=== PATIENT | male | born 1955 | race Caucasian/White ===

== ENCOUNTER 2018-11-08 07:22 | Inpatient (IN) | payer OTHER | END 2018-11-10 15:30 | disposition home health service (06) | DRG 470 | LOC: M.TBA 07:22 → M.ORTHSURG 12:01 | PROVIDERS: ADMIT Internal Medicine | PROC: 0SRB0JZ Replacement of Left Hip Joint with Synthetic Substitute, Open Approach (ICD-10-PCS; principal; 2018-11-08) | DX: M16.12 Unilateral primary osteoarthritis, left hip (principal); K59.00 Constipation, unspecified; Z82.49 Family history of ischemic heart disease and other diseases of the circulatory system; Z80.1 Family history of malignant neoplasm of trachea, bronchus and lung; Z84.1 Family history of disorders of kidney and ureter; Z88.6 Allergy status to analgesic agent; Z87.891 Personal history of nicotine dependence; Z90.81 Acquired absence of spleen; Z28.21 Immunization not carried out because of patient refusal ==

== ENCOUNTER 2021-04-30 11:41 | Inpatient (IN) | payer OTHER ==
[2021-04-30] VITALS (15 sets, daily range): BP systolic 85–180; BP diastolic 55–120
[~2021-04-30] VITALS: Ht 188 cm; Wt 107.2 kg
[~2021-04-30 11:41] MED LIST: COLACE 100 MG100 MG PO; HYDROCODONE-AP1 EAC6 PO; OXYCODONE HCL 55 MG PO; PERCOCET PO; SENOKOT-S1 TA1 PO; XARELTO10 MG PO
--- NOTE | 2021-04-30 11:54 | NUR ---
SEE STEMI PAPERWORK.
[2021-04-30 12:01] LABS: ABSOLUTE BASOPHILS 0.1 thou/uL (0.0-0.2); ABSOLUTE EOSINOPHILS 0.3 thou/uL (0.0-0.7); ABSOLUTE LYMPHOCYTES 3.7 thou/uL (0.8-5.3); ABSOLUTE MONOCYTES 1.5 thou/uL (0.0-1.2); ABSOLUTE NEUTROPHILS 9.6 thou/uL (1.6-8.1); BASOPHILS 0.7 %; EOSINOPHILS 2.2 %; HEMATOCRIT 44.8 % (42.0-52.0); HEMOGLOBIN 15.3 gm/dL (14.0-18.0); MCH 35.6 pg (26.0-34.0); MCV 104.5 fL (80.0-100.0); MPV 9.4 fl. (7.2-11.1); NUCLEATED RBCS 0 /100WBC; PLATELET COUNT* 243 thou/uL (150-400); POLYS 63.1 %; RBC 4.29 mil/uL (4.50-6.00); RDW-CV 14.4 % (10.5-14.5); WBC 15.2 thou/uL (4.0-11.0)
[2021-04-30 12:15] LABS: APTT 26.1 Seconds (25.0-31.3); PROTIME 10.5 Seconds (9.20-11.50)
[2021-04-30 12:22] LABS: CALCIUM 9.7 mg/dL (8.5-10.1); CREATININE 1.3 mg/dL (0.6-1.3); POTASSIUM 4.6 mmol/L (3.5-5.1)
[2021-04-30 12:33] LABS: ALBUMIN 4.2 g/dL (3.4-5.0); MAGNESIUM 2.2 mg/dL (1.8-2.4); TOTAL BILIRUBIN 0.7 mg/dL (<0.1-1.0); TOTAL PROTEIN 8.2 g/dL (6.4-8.2)
--- NOTE | 2021-04-30 14:52 | EKG ---
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 : 1955 Requested By: Dennis Bui Order Number: [id number] MD: Gumaro Yeager Measurements Intervals [place] Rate: 98 P: 72 [place]: 144 QRS: 79 QRSD: 83 T: 78 QT: 330 QTc: 422 Interpretive Statements Sinus rhythm Inferoposterior infarct, acute Probable RV involvement, suggest recording right precordial leads Compared to ECG 10/27/2018 09:06:31 Myocardial infarct finding now present Electronically Signed On 04-30-2021 14:52:35 CDT by Gumaro Yeager [email or web address] <ELECTRONICALLY SIGNED> By: Gumaro Yeager MD, FACC 04/30/21 1452 1146 1146 Gumaro Yeager MD, FAC /EPI
--- NOTE | 2021-04-30 14:55 | EKG ---
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: : 1955 Requested By: Dennis Bui Order Number: [id number] MD: Gumaro Yeager Measurements Intervals [place] Rate: 59 P: 64 [place]: 144 QRS: 41 QRSD: 89 T: 54 QT: 383 QTc: 380 Interpretive Statements Sinus rhythm Inferoposterior infarct, acute (LCx) Compared to ECG 04/30/2021 11:46:15 inferoposterior ischemic changes have diminished Electronically Signed On 04-30-2021 14:55:12 CDT by Gumaro Yeager [email or web address] <ELECTRONICALLY SIGNED> By: Gumaro Yeager MD, FAC 04/30/21 1455 1438 1438 Gumaro Yeager MD, [facility] /EPI
--- NOTE | 2021-04-30 15:33 | CARD ---
[address] [address] CARDIAC CATH REPORT Name: NAVEEN RODRIGUEZ Room: [place] [address] ADM IN M.Josh.#: [id number] Admission: 04/30/21 Attend Phys: Gumaro Yeager MD, Discharge: Date of : 59 Report #: [id number] THIS REPORT FOR: cc: Mekhi Pérez Vincent R. DO Holkins,Gumaro Kurtz MD [facility] ~ APPROVED REPORT Study performed: 04/30/2021 12:07:21 Patient Details Patient Status: ED Room #: The patient is a 66 year-old male Event Personnel Dr. Yeager, Antony Becerra EMBEDDED SOFTWARE MANAGER, Sera Clark RN, Susana Nguyen RTR Procedures Performed Left heart cath with LV measurement. Drug eluting stent placement to the proximal and distal circumflex. Indication STEMI Risk Factors Hypercholesterolemia Admission/Lab Medications/Medications given during procedure Angiomax bolus and infusion Procedure Narrative The patient was brought emergently to the Cardiac Catheterization Laboratory and was prepped and draped in a sterile manner. The right femoral was infiltrated with 2% Lidocaine subcutaneous anesthesia. IV conscious sedation was used throughout procedure with appropriate monitoring and was performed in the presence of a registered nurse who was an independent trained observer other than the physician performing the procedure. A 6fr [place] sheath was inserted into the right femoral artery. Coronary angiography was performed using coronary diagnostic catheters. The right coronary system was accessed and visualized with a Diagnostic JR4 catheter. The left coronary system was accessed and visualized with a Diagnostic JL4 catheter. Left ventricular/Aortic Valve [place] [address] CARDIAC CATH REPORT Name: MICHAELNAVEEN L Room: [address] IN [facility]#: [id number] Admission: 04/30/21 Attend Phys: Gumaro Yeager MD, Discharge: Date of : 59 Report #: [id number] pullback. Closure device was deployed with a 6Fr Fr Angioseal. The patient tolerated the procedure well and there were no complications associated with the procedure. There was no hematoma. Intraoperative Conscious Sedation Sedation start time: 1226 Case end Time: 1307 Fluoro Time: 14.6 minutes Dose: DAP [id number] cGycm2 1865 mGy Contrast Type and Amount: omnipaque 225ml Coronary Angiography The patient's coronary anatomy is right dominant. Diagnostic Cath Left Main 0% LAD 30% mid vessel narrowing with 50% proximal first diagonal narrowing Circumflex Prominent though nondominant vessel with 75% proximal narrowing and 100% occlusion of the distal circumflex after the takeoff of the second marginal branch with local thrombus at that site Right Coronary Dominant vessel with 0% narrowing Left Ventriculography Left Ventriculography was not performed. Hemodynamics The aortic pressure is 133/73 mmHg with a mean of 99 mmHg. The left ventricular pressure is 120/4 mmHg with a mean of 20 mmHg. The left ventricular end diastolic pressure is 21 mmHg. There was no gradient across the aortic valve upon pullback. PCI Technique Lesion Anticoagulation was achieved with Angiomax. Percutaneous coronary intervention was performed on the distal circumflex artery segment. The lesion stenosis prior to intervention was 100% with TONY 0 flow. A EBU 3.5 6Fr Guide Catheter was used to engage the Left ostium. A ProwaterFlex Interventional Guidewire was used to cross the lesion. BALLOON DILATION A Balloon catheter 2.0 x 12 Euphora was inserted and inflated up to 8atm for 6seconds. Additional Inflation: 10atm for 9[place]. [place] [address] CARDIAC CATH REPORT Name: MICHAELJOSE WANTIMA De León Room: [address]#: [id number] Admission: 04/30/21 Attend Phys: Gumaro Yeager MD, Discharge: Date of : 59 Report #: [id number] STENT DEPLOYMENT A 2.0 x 18 Taz stent was inserted and inflated up to 8atm for 6seconds. Additional Inflation: 12atm for 9seconds. POST STENT DEPLOYMENT BALLOON DILATION A Balloon catheter 2.0 x 8 Mini Trek was inserted and inflated up to 12atm for 22seconds. Additional Inflation: 12atm for 5seconds. Final angiography reveals 0 % stenosis with TONY 3 flow. PCI Technique Lesion 2 Percutaneous Coronary Intervention was performed on the proximal circumflex artery segment. Percutaneous coronary intervention was performed on the proximal circumflex artery segment. The lesion stenosis prior to intervention was 75% with TONY 3 flow. A EBU 3.5 6 Fr Guide Catheter was used to engage the Left ostium. A iPerceptions Interventional Guidewire was used to cross the lesion. Stent Deployment A 2.75 x 8 [place] stent was inserted and inflated up to 16atm for 9seconds. Additional Inflation: 18atm for 9seconds. Additional Inflation: 20atm for 14seconds. Final angiography reveals 0 % stenosis with TNOY 3 flow. Conclusion 1. Acute inferoposterior STEMI 2. Significant coronary artery disease characterized by the following: A 30% mid LAD narrowing with 50% first diagonal narrowing B prominent though nondominant circumflex with 75% proximal stenosis and 100% distal occlusion with local thrombus at the site 3. Moderate elevation of left ventricular end-diastolic pressure at rest 4. Successful PCI with deployment of a drug-eluting stent at the site of 100% distal circumflex occlusion with 0% residual narrowing TONY-3 flow to the distal vessel with no residual thrombus 5. Successful PCI with deployment of drug-el[place] [address] CARDIAC CATH REPORT Name: NAVEEN RODRIGUEZ Room: [address] IN [facility]#: [id number] Admission: 04/30/21 Attend Phys: Gumaro Yeager MD, Discharge: Date of : 59 Report #: [id number] of 75% proximal circumflex stenosis with 0% residual narrowing and TONY-3 flow to the distal vessel Recommendations Cardiac Risk Reduction Program Aggressive Medical Therapy Medications Administered Aspirin (any) Prasugrel Diagnostic Cath Approved by: Gumaro Yeager MD Date/Time: 04/30/2021 15:28:57 <ELECTRONICALLY SIGNED> By: Gumaro Yeager MD, [facility] 04/30/21 1532 153 [id number] Yeager MD, [facility] /INF
--- NOTE | 2021-04-30 20:28 | NUR ---
PATIENT ARRIVED TO THE ICU BED 6 AT 1555 WITH TREAD CUTTER NURSE AT BEDSIDE. RIGHT GROIN SITE CHECKED WITH NO HEMATOMA OR OOZING NOTED. PATIENT DENIES CHEST PAIN AT TIME OF ASSESSMENT. PATIENT WAS PLACED ON ICU MONITORS AND MADE COMFORTABLE IN THE BED. PATIENT INSTRUCTED TO BE ON BEDREST UNTIL 1999 TONIGHT AND RIGHT LOWER EXTRIMITY TO STAY STRAIGHT UNTIL THEN. ASSESSMENT CHARTED. NO FURTHER CONCERNS AT THIS TIME. WILL CONTINUE TO MONITOR AND CARE PER PLAN OF CARE.
[2021-05-01] VITALS (42 sets, daily range): BP systolic 76–120; BP diastolic 39–72
[2021-05-01 03:23] LABS: HEMATOCRIT 38.1 % (42.0-52.0); MCH 35.3 pg (26.0-34.0); MCHC 33.5 g/dL (28.0-37.0); MCV 105.5 fL (80.0-100.0); MPV 9.4 fl. (7.2-11.1); RBC 3.61 mil/uL (4.50-6.00); RDW-CV 14.5 % (10.5-14.5)
[2021-05-01 03:28] LABS: HEMOGLOBIN 12.7 gm/dL (14.0-18.0)
[2021-05-01 04:08] LABS: ALBUMIN 3.2 g/dL (3.4-5.0); ALKALINE PHOSPHATASE 81 U/L (46-116); ANION GAP 10 mmol/L (7-16); BUN 20 mg/dL (7-18); CALCIUM 8.3 mg/dL (8.5-10.1); CHLORIDE 105 mmol/L (98-107); CHOLESTEROL 194 mg/dL (<200); CK-MB MASS 43.8 ng/mL (<0.5-3.6); CO2 22 mmol/L (21-32); CREATININE 1.2 mg/dL (0.6-1.3); GLUCOSE 121 mg/dL (70-99); HDL CHOLESTEROL 34 mg/dL (>40); LDL CHOLESTEROL 131 mg/dL (<100); POTASSIUM 4.3 mmol/L (3.5-5.1); SGOT 89 U/L (15-37); SGPT 36 U/L (30-65); SODIUM 137 mmol/L (136-145); TC:HDL 5.7 Ratio (Not establshd); TOTAL PROTEIN 6.5 g/dL (6.4-8.2); TRIGLYCERIDE 149 mg/dL (<150); VLDL 30 mg/dL (<40)
[2021-05-01 04:10] LABS: SERUM ASSESSMENT CLEAR
--- NOTE | 2021-05-01 07:46 | NUR ---
NO ACUTE CHANGES NOTED THIS SHIFT. PT HAD ASYMPTOMATIC HYPOTENSION LAST NOC. MD CARDOSO ORDERED NS BOLUS. SEE EMAR. ASSESSMENTS COMPLETE CHARTED. PT DENIED CHEST PAIN. FALL PRECAUTIONS IN PLACE FOR SAFETY.
--- NOTE | 2021-05-01 11:21 | EKG ---
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 : 1955 Requested By: Gumaro Yeager Order Number: [id number] Reading MD: Hugo Kendrick Measurements Intervals [place] Rate: 61 P: 60 [place]: 140 QRS: 46 QRSD: 91 T: 57 QT: 403 QTc: 406 Interpretive Statements Sinus rhythm Abnormal R-wave progression, early transition Probable inferior infarct, acute Compared to ECG 04/30/2021 14:38:35 No significant changes Electronically Signed On 05-01-2021 11:20:55 CDT by Hugo Kendrick [email or web address] <ELECTRONICALLY SIGNED> By: Hugo Kendrick MD, FACC 05/01/21 1120 0307 030 Hugo Kendrick MD, FAC /EPI
--- NOTE | 2021-05-01 11:45 | 2DMMODE ---
[place] [address] 2 D/M-MODE ECHOCARDIOGRAM Name: MICHAELNAVEEN WAN Sarthak Room: [address] IN .R.#: [id number] Admission: 04/30/21 Attend Phys: Lydia Lakhani Discharge: Date of : 59 Date of Service: 05/01/21 1145 Report #: [id number] THIS REPORT FOR: cc: Mekhi Pérez,Mekhi Wagner,Gumaro Kurtz MD [facility] ~ APPROVED REPORT Study performed: 05/01/2021 10:11:18 EXAM: Comprehensive 2D, Doppler, and color-flow Echocardiogram Patient Location: In-Patient Room #: 006 Status: routine BSA: 2.36 HR: 71 bpm BP: 113/66 mmHg Rhythm: NSR Other Information Study Quality: Good Indications Acute ND 2D Dimensions IVSd: 9.84 (7-11mm) LVOT Diam: 20.47 (18-24mm) LVDd: 46.05 mm PWd: 10.10 (7-11mm) Ascending Ao: 31.06 (22-36mm) LVDs: 30.09 (25-40mm) Aortic Root: 33.30 mm Volumes Left Atrial Volume (Systole) LA ESV Index: 26.40 mL/m2 Aortic Valve AoV Peak Serafin.: 1.24 m/s AO Peak Gr.: 6.16 mmHg LVOT Max P.46 mmHg AO Mean Gr.: 3.21 mmHg LVOT Mean P.07 mmHg LVOT Max V: 1.06 m/s AO V2 VTI: 25.26 cm LVOT Mean V: 0.66 m/s MARCE (VTI): 2.78 cm2 LVOT V1 VTI: 21.33 [place] [address] 2 D/M-MODE ECHOCARDIOGRAM Name: NAVEEN RODRIGUEZ Room: [address] IN ..#: [id number] Admission: 04/30/21 Attend Phys: Lydia Lakhani Discharge: Date of : 59 Date of Service: 05/01/21 1145 Report #: [id number] Mitral Valve E/A Ratio: 1.08 MV Decel. Time: 236.51 ms MV E Max Serafin.: 0.91 m/s MV PHT: 68.59 ms MVA (PHT): 3.21 cm2 TDI E/Lateral E': 7.58 E/Medial E': 7.00 Medial E' Serafin.: 0.13 m/s Lateral E' Serafin.: 0.12 m/s Pulmonary Valve PV Peak Serafin.: 1.13 m/s PV Peak Gr.: 5.14 mmHg Left Ventricle The left ventricle is normal size. There is subtle inferobasilar hypokinesis. There is normal left ventricular wall thickness. Left ventricular systolic function is normal. The left ventricular ejection fraction is within the normal range. LVEF is 55-60%. The left ventricular diastolic function is normal. Right Ventricle The right ventricle is normal size. The right ventricular systolic function is normal. Atria The left atrium size is normal. The right atrium size is normal. Aortic Valve The aortic valve is normal in structure. No aortic regurgitation is present. There is no aortic valvular stenosis. Mitral Valve The mitral valve is normal in structure. Trace mitral regurgitation. No evidence of mitral valve stenosis. Tricuspid Valve The tricuspid valve is normal in structure. Trace tricuspid regurgitation. Unable to assess PA pressure. Pulmonic Valve The pulmonary valve is normal in structure. There is no pulmonic [place] [address] 2 D/M-MODE ECHOCARDIOGRAM Name: NAVEEN RODRIGUEZ Sarthak Room: [address]#: [id number] Admission: 04/30/21 Attend Phys: Lydia Lakhani Discharge: Date of : 59 Date of Service: 05/01/21 1145 Report #: [id number] Great Vessels The aortic root is normal in size. IVC is normal in size and collapses >50% with inspiration. Pericardium There is no pericardial effusion. <Conclusion> The left ventricle is normal size. There is normal left ventricular wall thickness. Left ventricular systolic function is normal. The left ventricular ejection fraction is within the normal range. LVEF is 55-60%. The left ventricular diastolic function is normal. The right ventricle is normal size. The left atrium size is normal. The aortic valve is normal in structure. The mitral valve is normal in structure. The tricuspid valve is normal in structure. IVC is normal in size and collapses >50% with inspiration. There is no pericardial effusion. There is subtle inferobasilar hypokinesis. <ELECTRONICALLY SIGNED> By: Gumaro Yeager MD, FACC 05/01/21 1145 1145 1145 Gumaro Yeager MD, FACC /INF
--- NOTE | 2021-05-01 15:13 | NUR ---
PT TRANSFERRED TO ROOM 232 VIA WHEELCHAIR FROM ICU AT APPROXIMATELY 1345. REPORT RECEIVED FROM KIRTI AYOUB. THIS RN AGREES WITH PREVIOUS BODY FORMER. PT ORIENTED TO ROOM AND CALL LIGHT. FAMILY AT BEDSIDE. PT A&0X4, DENIES ANY PAIN OR SHORTNESS OF BREATH AT THIS TIME. TRACING SR ON THE SOCK LINING STITCHER. RIGHT GROIN CATH SITE C/D/I WITH NO HEMATOMA NOTED. ON RA SAT UPPER 90'S. PT UP AD DESTINY IN ROOM. PT PROGRESSING TOWARS GOALS. PROBABLE DISCHARGE HOME TOMORROW 05/02. MEDS PER SEP. HOURLY ROUNDING OBSERVED. BED IN LOW POSITION. CALL LIGHT WITHIN REACH. WILL CONTINUE PLAN OF CARE.
--- NOTE | 2021-05-01 17:03 | NUR ---
Patient had cath and 2 stents placed yesterday. Tentative dc plan is for tom[place]. No needs anticpated at discharge at this time. Patient currently lives in a house alone. Stairs in the home but patient has no difficutly ambulating. Patient is independent with ADLS and was driving. No hx of DME, O2, dialysis, BHS, infusion therapy, HH or SNF. Hx of rehab in 2019 for hip replacement. PCP on facesheet is listed as Mekhi Gamble but patient states that after yesterday he will no longer be able to see him due to his insurance being OON with office, per patient. Patient stated that he is changing "everything over to his new insurance" and will find a different PCP. Advised patient that he will move out of ICU today to tele unit. Patient verbalized understanding. CM to continue to follow for safe dc planning
--- NOTE | 2021-05-02 04:49 | NUR ---
PT A&O X 4. ON RA. NO C/O PAIN. UP AD DESTINY. NO OTHER CONCERNS AT THIS TIME. CALL LIGHT WITHIN REACH. WILL CONTINUE TO MONITOR.
[2021-05-02 05:06] VITALS: BP 108/60
[2021-05-02 08:00] VITALS: BP 112/58
[2021-05-02] MEDS ORDERED: EFFIENT10 MG PO (08:39)
[2021-05-02] MEDS ORDERED: BAYER CHEWABLE81 MG PO (08:39)
[2021-05-02] MEDS ORDERED: LIPITOR 40 MG T40 M1 PO (08:39)
[2021-05-02] MEDS ORDERED: CARVEDILOL3.125 MG PO (08:39)
[2021-05-02 09:50] VITALS: BP 112/58
--- NOTE | 2021-05-02 11:43 | NUR ---
ASSUMED PT CARE AT 0730, PT AOX4, NO C/O PAIN, RT GROIN CATH SITE C/D/I W/ A BANDAID IN PLACE W/ MINIMAL DRY BLOOD ON IT. PT WORKED W/ DR YUN AND DC ORDERS RECEIVED. ALL 3 IV'S AND PARLIAMENTARY LIBRARIAN REMOVED. PT DC'D BY W/ NURSING STAFF AND ALL PAPERWORK AND PERSONAL BELONGINGS TO PT'S VEHICLE AT APPROX 1135
--- NOTE | 2021-05-02 13:24 | NUR ---
PHYSICIAN INFORMS OF PLAN FOR THE PT TO D/C HOME TODAT WITH SELF-CARE. NO CM D/C PLANNING NEEDS ANTICIPATED. CM WILL REMAIN AVAILABLE TO ASSIST AND FOLLOW NEEDED.
--- NOTE | 2021-05-02 16:13 | D ---
[address] [address] DISCHARGE SUMMARY Name: NAVEEN RODRIGUEZ Room: [address] IN M.R.#: [id number] Admission: 04/30/21 Attend Phys: Gumaro Yeager MD, Discharge: 05/02/21 Date of : 59 Report #: [id number] THIS REPORT FOR: cc: Mekhi Pérez Vincent R. DO Holkins,Gumaro Kurtz MD [facility] ~ DATE OF DISCHARGE: 05/02/2021 FINAL DISCHARGE DIAGNOSES: 1. Acute inferoposterior ST segment elevation myocardial infarction. 2. Coronary artery disease. 3. Hyperlipidemia. 4. Prior tobacco use. PROCEDURES: 04/30/2021 -- left heart catheterization, selective coronary arteriography and percutaneous coronary intervention with deployment of drug-eluting stents in the proximal and distal circumflex. HOSPITAL COURSE: The patient is a pleasant 66-year-old male who presented on 04/30 with persistent chest pain and demonstrated acute inferoposterior ST segment elevation myocardial infarction. There is underlying hyperlipidemia and prior tobacco use. He was taken emergently to the catheterization laboratory and that study revealed significant coronary artery disease characterized by total occlusion of the distal circumflex with 75% proximal circumflex narrowing. There was 30% proximal LAD narrowing and 50% first diagonal narrowing. I proceeded with PCI, deploying one 2.0 x 18 mm Taz drug-eluting stent in the distal circumflex and one 2.75 x 8 Taz in the proximal circumflex with 0% residual narrowings at both sites following stent deployment. The patient did well post procedurally without recurrent chest discomfort. CK-MB shayy to a peak value of 43.8. Additional laboratory post-procedurally revealed sodium 137, potassium 4.3, BUN 20, creatinine 1.2, glucose 121. Hemoglobin 12.7, white blood cell count 11,000 with 204,000 platelets. He ambulated in the hallways without difficulty and there was good hemostasis at the right femoral site of catheterization. He was discharged home on the following medications: Prasugrel 10 mg daily, aspirin 81 mg daily, atorvastatin 40 mg daily and carvedilol 3.125 mg b.i.d. Lisinopril was held by virtue [place] [address] DISCHARGE SUMMARY Name: NAVEEN RODRIGUEZ Room: [address]#: [id number] Admission: 04/30/21 Attend Phys: Gumaro Yeager MD, Discharge: 05/02/21 Date of : 59 Report #: [id number] The patient is scheduled to return to see my nurse practitioner, Maci Mesa on 05/08/2021. Therefore, the patient is discharged home in stable condition on the aforementioned medications with followup as iterated above. Discharge time is 35 minutes from 0900 to 0935 on 05/02/2021. <ELECTRONICALLY SIGNED> By: Gumaro Yeager MD, FACC 05/02/21 1613 0840 [id number] Yeager MD, [facility] /nt
== END 2021-05-02 11:35 | disposition home or self-care (01) | DRG 246 ==
LOC: M.ERS 11:41 → M.CL 12:17 → M.ICU 13:19 → M.TBA-CV 13:19 → M.ICU 15:55 → M.2W 05-01 13:52
PROVIDERS: Emergency Medicine Emergency Medical Services; ADMIT Internal Medicine; ATTEND Internal Medicine
PROC: 4A023N7 Measurement of Cardiac Sampling and Pressure, Left Heart, Percutaneous Approach (ICD-10-PCS; principal; 2021-04-30)
PROC: 027035Z Dilation of Coronary Artery, One Artery with Two Drug-eluting Intraluminal Devices, Percutaneous Approach (ICD-10-PCS; principal; 2021-04-30)
PROC: B2111ZZ Fluoroscopy of Multiple Coronary Arteries using Low Osmolar Contrast (ICD-10-PCS; principal; 2021-04-30)
DX: I21.11 ST elevation (STEMI) myocardial infarction involving right coronary artery (principal); I50.31 Acute diastolic (congestive) heart failure; Z20.822 Contact with and (suspected) exposure to COVID-19; I25.10 Atherosclerotic heart disease of native coronary artery without angina pectoris; E78.5 Hyperlipidemia, unspecified; Z60.2 Problems related to living alone; I11.0 Hypertensive heart disease with heart failure; Z90.81 Acquired absence of spleen; Z88.6 Allergy status to analgesic agent; Z82.49 Family history of ischemic heart disease and other diseases of the circulatory system; Z79.899 Other long term (current) drug therapy